=== PATIENT | male | born 1990 | race Caucasian/White ===

== ENCOUNTER 2021-02-24 23:00 | Inpatient (IN) | payer MEDICAID ==
[~2021-02-24] VITALS: Ht 185.4 cm; Wt 113.4 kg
[~2021-02-24 23:00] MED LIST: BACIO TP; BUPR100SR PO; CEPH500C3 PO; DIVA-80 PO; OLAN10TA74 PO
[2021-02-25] MEDS ORDERED: HALOPERIDOL 5 MG TABLET PO PRN (01:15)
[2021-02-25 01:58] VITALS: BP 138/90
[2021-02-25] MEDS: LORazepam 2 MG TABLET PO PRN (02:30)
[2021-02-25 02:56] VITALS: BP 138/90
[2021-02-25] MEDS ORDERED: PNEUMOCOCCAL VACCINE POLYVALENT 0.5 ML VIAL [PPSV23] IM. ONE (05:30)
[2021-02-25] MEDS ORDERED: MAG HYDROX/AL HYDROX/SIMETH ES 30 ML SUSPENSION UDCUP PO PRN (07:45)
[2021-02-25] MEDS ORDERED: IBUPROFEN 400 MG TABLET PO PRN (07:45)
[2021-02-25] MEDS ORDERED: GuaiFENesin/D-METHORPHAN [SUGAR-FREE] 200-20MG/10 ML SYRUP UDCUP PO PRN (07:45)
[2021-02-25] MEDS ORDERED: CloNIDine HCL 0.1 MG TABLET PO PRN (07:45)
[2021-02-25] MEDS ORDERED: NICOTINE 14 MG/24 HOUR PATCH TD PRN (07:45)
[2021-02-25] MEDS ORDERED: PETROLATUM,WHITE 28 GM JELLY TP PRN (07:45)
[2021-02-25] MEDS ORDERED: MAGNESIUM HYDROXIDE SUSPENSION 30 ML UDCUP PO PRN (07:45)
[2021-02-25] MEDS ORDERED: ONDANSETRON HCL 4 MG TABLET PO PRN (07:45)
[2021-02-25] MEDS ORDERED: ACETAMINOPHEN 325 MG TABLET PO PRN (07:45)
[2021-02-25] MEDS ORDERED: DOCUSATE SODIUM 100 MG CAPSULE PO PRN (07:45)
[2021-02-25] MEDS ORDERED: LOPERAMIDE HCL 2 MG CAPSULE PO PRN (07:45)
[2021-02-25] MEDS ORDERED: ALBUTEROL SULFATE HFA 90 MCG/PUFF 8 GM INHALER IH PRN (07:45)
[2021-02-25] MEDS: TOPIRAMATE 25 MG TABLET PO SCH ×2 (09:29→16:41)
[2021-02-25] MEDS: AmLODIPine BESYLATE 10 MG TABLET PO SCH (09:29)
[2021-02-25] MEDS: BuPROPion HCL XL 150 MG ER TABLET PO SCH (13:01)
[2021-02-25 13:24] VITALS: BP 127/63
[2021-02-25 16:31] VITALS: BP 118/72
[2021-02-25] MEDS: GABAPENTIN 300 MG CAPSULE PO SCH (16:41)
[2021-02-25] MEDS: OLANZapine 10 MG TABLET PO SCH (20:36)
[2021-02-26 01:37] VITALS: BP 134/74
[2021-02-26] MEDS: GABAPENTIN 300 MG CAPSULE PO SCH ×2 (09:20→16:52)
[2021-02-26] MEDS: TOPIRAMATE 25 MG TABLET PO SCH ×2 (09:20→16:52)
[2021-02-26] MEDS: BuPROPion HCL XL 150 MG ER TABLET PO SCH (09:20)
[2021-02-26] MEDS: AmLODIPine BESYLATE 10 MG TABLET PO SCH (09:20)
[2021-02-26 10:28] VITALS: BP 125/79
[2021-02-26] MEDS: LORazepam 2 MG TABLET PO PRN ×2 (13:42→22:05)
[2021-02-26 16:31] VITALS: BP 121/66
[2021-02-26] MEDS: OLANZapine 10 MG TABLET PO SCH (20:39)
[2021-02-27 01:17] VITALS: BP 106/64
[2021-02-27 08:26] VITALS: BP 104/63
[2021-02-27] MEDS: AmLODIPine BESYLATE 10 MG TABLET PO SCH (09:00)
[2021-02-27] MEDS: GABAPENTIN 300 MG CAPSULE PO SCH ×2 (09:06→16:53)
[2021-02-27] MEDS: BuPROPion HCL XL 150 MG ER TABLET PO SCH (09:06)
[2021-02-27] MEDS: TOPIRAMATE 25 MG TABLET PO SCH ×2 (09:06→16:53)
[2021-02-27 16:34] VITALS: BP 118/73
[2021-02-27] MEDS: OLANZapine 10 MG TABLET PO SCH (20:32)
[2021-02-28 00:32] VITALS: BP 124/70
[2021-02-28] MEDS: AmLODIPine BESYLATE 10 MG TABLET PO SCH (08:37)
[2021-02-28] MEDS: GABAPENTIN 300 MG CAPSULE PO SCH ×2 (08:37→17:12)
[2021-02-28] MEDS: BuPROPion HCL XL 150 MG ER TABLET PO SCH (08:37)
[2021-02-28] MEDS: TOPIRAMATE 25 MG TABLET PO SCH ×2 (08:37→17:12)
[2021-02-28 09:06] VITALS: BP 130/79
[2021-02-28 16:18] VITALS: BP 135/81
[2021-02-28] MEDS: OLANZapine 10 MG TABLET PO SCH (20:13)
[2021-03-01 00:26] VITALS: BP 118/80
[2021-03-01 08:52] VITALS: BP 121/80
[2021-03-01] MEDS: AmLODIPine BESYLATE 10 MG TABLET PO SCH (09:03)
[2021-03-01] MEDS: BuPROPion HCL XL 150 MG ER TABLET PO SCH (09:03)
[2021-03-01] MEDS: TOPIRAMATE 25 MG TABLET PO SCH (09:03)
[2021-03-01] MEDS: GABAPENTIN 300 MG CAPSULE PO SCH (09:03)
[2021-03-01] MEDS ORDERED: BUPR-93 PO (13:44)
[2021-03-01] MEDS ORDERED: GABA-1181 PO (13:44)
[2021-03-01] MEDS ORDERED: TOPI25 PO (13:45)
[2021-03-01] MEDS ORDERED: AMLO-258 PO (13:45)
== END 2021-03-01 16:17 | disposition home or self-care (01) | DRG 750 ==
LOC: B2S 02-25 01:16
PROVIDERS: ADMIT Psychiatry & Neurology Psychiatry; ATTEND Psychiatry & Neurology Psychiatry
DX: F25.9 Schizoaffective disorder, unspecified (principal); R45.851 Suicidal ideations; E66.9 Obesity, unspecified; F32.9 Major depressive disorder, single episode, unspecified; F43.10 Post-traumatic stress disorder, unspecified; F41.9 Anxiety disorder, unspecified; I10 Essential (primary) hypertension; Z91.5 Personal history of self-harm; Z68.30 Body mass index [BMI] 30.0-30.9, adult; Z79.899 Other long term (current) drug therapy; Z88.8 Allergy status to other drugs, medicaments and biological substances; Z91.010 Allergy to peanuts; Z91.013 Allergy to seafood
CPT/HCPCS: 90732; G0009; Z7610

== ENCOUNTER 2021-03-28 14:09 | Inpatient (IN) | payer MEDICAID, OTHER ==
[~2021-03-28] VITALS: Ht 185.4 cm; Wt 108.4 kg
[~2021-03-28 14:09] MED LIST changes: +AMLO-258 PO; -BACIO TP; +BUPR-93 PO; -BUPR100SR PO; -CEPH500C3 PO; -DIVA-80 PO; +GABA-1181 PO; +TOPI25 PO
[2021-03-28 15:48] LABS: BASOPHILS % (AUTO) 0.6 % (0.0-2.0); EOSINOPHILS % (AUTO) 1.3 % (1.0-6.0); HEMATOCRIT 44.1 % (41-53); HEMOGLOBIN 15.1 g/dL (13.5-17.5); LYMPHOCYTES # (AUTO) 2.4 K/uL (1.0-4.8); LYMPHOCYTES % (AUTO) 27.9 % (22.0-44.0); MEAN CORPUSCULAR HEMOGLOBIN 30.3 pg (26.0-34.0); MEAN CORPUSCULAR HGB CONC 34.2 G/dL (31.0-37.0); MEAN CORPUSCULAR VOLUME 89 fL (80-100); MONOCYTES # (AUTO) 0.7 K/uL (0.1-1.0); MONOCYTES % (AUTO) 7.8 % (2.0-9.0); NEUTROPHILS # (AUTO) 5.4 K/uL (1.8-7.7); NEUTROPHILS % (AUTO) 62.4 % (40.0-70.0); PLATELET COUNT (AUTO) 211 K/uL (150-450); RED BLOOD CELL COUNT(AUTO) 4.97 MIL/uL (4.50-5.90); RED CELL DISTRIBUTION WIDTH 13.1 % (11.5-14.5)
[2021-03-28 15:51] LABS: AMPHET/METH SCREEN,URINE NEGATIVE (NEGATIVE); BARBITURATE SCREEN, URINE NEGATIVE (NEGATIVE); BENZODIAZEPINES SCREEN,URINE NEGATIVE (NEGATIVE); CANNABINOID SCREEN,URINE NEGATIVE (NEGATIVE); COCAINE SCREEN,URINE NEGATIVE (NEGATIVE); METHADONE SCREEN, URINE NEGATIVE (NEGATIVE); OPIATE SCREEN,URINE NEGATIVE (NEGATIVE)
[2021-03-28 15:52] LABS: PHENCYCLIDINE SCREEN,URINE NEGATIVE (NEGATIVE)
[2021-03-28 15:58] LABS: ANION GAP 10 mmol/L (8-16); CALCIUM, TOTAL 9.4 mg/dL (8.8-10.5); CARBON DIOXIDE 26 mmol/L (22-29); CHLORIDE 103 mmol/L (98-107); CREATININE 1.07 mg/dL (0.60-1.30); GLOMERULAR FILTR. RATE CALC > 60 mL/min (>60); GLUCOSE,RANDOM 89 mg/dL (70-110); POTASSIUM 3.5 mmol/L (3.5-5.1); SODIUM SERUM 139 mmol/L (136-145); UREA NITROGEN, BLOOD 11 mg/dL (7-18)
[2021-03-28] MEDS ORDERED: HALOPERIDOL 5 MG TABLET PO PRN (16:00)
[2021-03-28] MEDS ORDERED: LORazepam 2 MG TABLET PO PRN (16:00)
[2021-03-28] MEDS ORDERED: ZOLPIDEM TARTRATE 10 MG TABLET PO PRN (16:00)
[2021-03-28 16:04] LABS: ALANINE AMINOTRANSFERASE 45 U/L (12-78); ALBUMIN 4.7 g/dL (3.4-5.0); ALKALINE PHOSPHATASE 99 U/L (46-116); ASPARTATE AMINOTRANSFERASE 26 U/L (15-37); BILIRUBIN,TOTAL 0.4 mg/dL (0.1-1.0); TOTAL PROTEIN, SERUM 8.5 g/dL (6.4-8.2)
[2021-03-28 16:05] LABS: LITHIUM 0.59 mmol/L (0.60-1.20)
[2021-03-28 16:13] LABS: COVID AG,FIA SOURCE NASOPHARYNGEAL
[2021-03-28 17:33] VITALS: BP 158/90
[2021-03-28] MEDS ORDERED: AmLODIPine BESYLATE 10 MG TABLET PO ONE (18:45)
[2021-03-29 06:54] LABS: CHOL/HDL RATIO 3.8 (4.2-7.3); FREE T4 (FREE THYROXINE) 0.82 ng/dL (0.76-1.46); THYROID STIMULATING HORMONE 1.93 uIU/mL (0.36-3.74)
[2021-03-29] MEDS: AmLODIPine BESYLATE 10 MG TABLET PO SCH (08:32)
[2021-03-29 08:45] VITALS: BP 122/67
[2021-03-29] MEDS ORDERED: ACETAMINOPHEN 325 MG TABLET PO PRN (09:30)
[2021-03-29] MEDS ORDERED: ALBUTEROL SULFATE HFA 90 MCG/PUFF 8 GM INHALER IH PRN (09:30)
[2021-03-29] MEDS ORDERED: CloNIDine HCL 0.1 MG TABLET PO PRN (09:30)
[2021-03-29] MEDS ORDERED: GuaiFENesin/D-METHORPHAN [SUGAR-FREE] 200-20MG/10 ML SYRUP UDCUP PO PRN (09:30)
[2021-03-29] MEDS ORDERED: PETROLATUM,WHITE 28 GM JELLY TP PRN (09:30)
[2021-03-29] MEDS ORDERED: MAGNESIUM HYDROXIDE SUSPENSION 30 ML UDCUP PO PRN (09:30)
[2021-03-29] MEDS ORDERED: IBUPROFEN 400 MG TABLET PO PRN (09:30)
[2021-03-29] MEDS ORDERED: ONDANSETRON HCL 4 MG TABLET PO PRN (09:30)
[2021-03-29] MEDS ORDERED: NICOTINE 14 MG/24 HOUR PATCH TD PRN (09:30)
[2021-03-29] MEDS ORDERED: DOCUSATE SODIUM 100 MG CAPSULE PO PRN (09:30)
[2021-03-29] MEDS ORDERED: LOPERAMIDE HCL 2 MG CAPSULE PO PRN (09:30)
[2021-03-29] MEDS ORDERED: MAG HYDROX/AL HYDROX/SIMETH ES 30 ML SUSPENSION UDCUP PO PRN (09:30)
[2021-03-29] MEDS: BuPROPion HCL XL 150 MG ER TABLET PO SCH (10:07)
[2021-03-29] MEDS: DIVALPROEX SODIUM 500 MG DR TABLET PO SCH ×2 (10:07→20:09)
[2021-03-29] MEDS: TOPIRAMATE 25 MG TABLET PO SCH ×2 (10:07→16:27)
[2021-03-29] MEDS: GABAPENTIN 300 MG CAPSULE PO SCH ×2 (10:07→16:27)
[2021-03-29 16:00] VITALS: BP 128/65
[2021-03-29] MEDS: OLANZapine 10 MG TABLET PO SCH (20:09)
[2021-03-30 08:44] VITALS: BP 154/89
[2021-03-30] MEDS ORDERED: AmLODIPine BESYLATE 10 MG TABLET PO SCH (09:00)
[2021-03-30] MEDS: BuPROPion HCL XL 150 MG ER TABLET PO SCH (09:10)
[2021-03-30] MEDS: AmLODIPine BESYLATE 10 MG TABLET PO SCH (09:11)
[2021-03-30] MEDS: TOPIRAMATE 25 MG TABLET PO SCH ×2 (09:11→16:41)
[2021-03-30] MEDS: GABAPENTIN 300 MG CAPSULE PO SCH ×2 (09:11→16:41)
[2021-03-30] MEDS: DIVALPROEX SODIUM 500 MG DR TABLET PO SCH ×2 (09:11→20:17)
[2021-03-30 18:25] VITALS: BP 149/86
[2021-03-30] MEDS: OLANZapine 10 MG TABLET PO SCH (20:16)
[2021-03-31 08:00] VITALS: BP 134/73
[2021-03-31] MEDS: TOPIRAMATE 25 MG TABLET PO SCH ×2 (08:39→16:30)
[2021-03-31] MEDS: DIVALPROEX SODIUM 500 MG DR TABLET PO SCH ×2 (08:39→20:00)
[2021-03-31] MEDS: GABAPENTIN 300 MG CAPSULE PO SCH ×2 (08:39→16:30)
[2021-03-31] MEDS: BuPROPion HCL XL 150 MG ER TABLET PO SCH (08:39)
[2021-03-31] MEDS: AmLODIPine BESYLATE 10 MG TABLET PO SCH (08:39)
[2021-03-31 16:37] VITALS: BP 134/80
[2021-03-31] MEDS: OLANZapine 10 MG TABLET PO SCH (20:00)
[2021-04-01 08:00] VITALS: BP 138/76
[2021-04-01] MEDS: GABAPENTIN 300 MG CAPSULE PO SCH (08:38)
[2021-04-01] MEDS: DIVALPROEX SODIUM 500 MG DR TABLET PO SCH (08:38)
[2021-04-01] MEDS: AmLODIPine BESYLATE 10 MG TABLET PO SCH (08:38)
[2021-04-01] MEDS: TOPIRAMATE 25 MG TABLET PO SCH (08:38)
[2021-04-01] MEDS: BuPROPion HCL XL 150 MG ER TABLET PO SCH (08:38)
[2021-04-01] MEDS ORDERED: DIVA125C20 PO (12:00)
== END 2021-04-01 14:00 | disposition home or self-care (01) | DRG 750 ==
LOC: EMS 14:09 → 3EI 15:48
PROVIDERS: ADMIT Psychiatry & Neurology Child & Adolescent Psychiatry; ATTEND Psychiatry & Neurology Child & Adolescent Psychiatry
DX: F25.1 Schizoaffective disorder, depressive type (principal); R45.851 Suicidal ideations; I10 Essential (primary) hypertension; E66.9 Obesity, unspecified; Z68.31 Body mass index [BMI] 31.0-31.9, adult; F41.9 Anxiety disorder, unspecified; Z20.822 Contact with and (suspected) exposure to COVID-19; R10.13 Epigastric pain
CPT/HCPCS: 80053; 80061; 80178; 84439; 84443; 85025; 87081; 99285; G0480

== ENCOUNTER 2023-01-01 15:19 | Emergency (ER) | payer MEDICAID, OTHER ==
[~2023-01-01] VITALS: Ht 185.4 cm; Wt 100.0 kg
[~2023-01-01 15:19] MED LIST changes: +BUPR-50 PO; -BUPR-93 PO; +DIVA125C20 PO
[2023-01-01 15:24] VITALS: BP 142/94
[2023-01-01] MEDS ORDERED: DiphenhydrAMINE HCL 50 MG/ML VIAL IVP ONE (15:45)
[2023-01-01] MEDS ORDERED: VALB40CA2 PO (15:53)
[2023-01-01] MEDS ORDERED: OLAN5TAB52 PO (15:56)
[2023-01-02] MEDS ORDERED: DIVA500T53 PO (18:29)
== END 2023-01-01 16:43 | disposition home or self-care (01) ==
LOC: EMS 15:19
DX: G24.01 Drug induced subacute dyskinesia (principal); F32.A Depression, unspecified; Z88.6 Allergy status to analgesic agent; Z91.010 Allergy to peanuts
CPT/HCPCS: 99283; 96374; J1200

== ENCOUNTER 2023-01-02 17:54 | Emergency (ER) | payer OTHER ==
[~2023-01-02] VITALS: Ht 185.4 cm; Wt 100.0 kg
[~2023-01-02 17:54] MED LIST changes: -AMLO-258 PO; -BUPR-50 PO; -GABA-1181 PO; -OLAN10TA74 PO; +OLAN5TAB52 PO; -TOPI25 PO; +VALB40CA2 PO
[2023-01-02] MEDS ORDERED: DIVA500T53 PO (18:29)
[2023-01-02] MEDS ORDERED: SODIUM CHLORIDE 0.9% 1,000 ML IV ONE (19:45)
[2023-01-02] MEDS ORDERED: DiphenhydrAMINE HCL 50 MG/ML VIAL IVP ONE (19:45)
[2023-01-02 19:59] LABS: BASOPHILS % (AUTO) 0.5 % (0.0-2.0); EOSINOPHILS % (AUTO) 1.1 % (1.0-6.0); LYMPHOCYTES % (AUTO) 19.7 % (22.0-44.0); MEAN CORPUSCULAR HEMOGLOBIN 31.8 pg (26.0-34.0); MEAN CORPUSCULAR HGB CONC 34.9 G/dL (31.0-37.0); MEAN CORPUSCULAR VOLUME 91 fL (80-100); MONOCYTES # (AUTO) 0.8 K/uL (0.1-1.0); MONOCYTES % (AUTO) 8.2 % (2.0-9.0); NEUTROPHILS # (AUTO) 7.3 K/uL (1.8-7.7); NEUTROPHILS % (AUTO) 70.5 % (40.0-70.0); PLATELET COUNT (AUTO) 166 K/uL (150-450); RED CELL DISTRIBUTION WIDTH 12.7 % (11.5-14.5)
[2023-01-02 20:07] LABS: ANION GAP 11 mmol/L (8-16); CALCIUM, TOTAL 9.5 mg/dL (8.8-10.5); CARBON DIOXIDE 30 mmol/L (22-29); CHLORIDE 104 mmol/L (98-107); CREATININE 0.92 mg/dL (0.60-1.30); GLOMERULAR FILTR. RATE CALC > 60 mL/min (>60); GLUCOSE,RANDOM 88 mg/dL (70-110); POTASSIUM 4.2 mmol/L (3.5-5.1); SODIUM SERUM 145 mmol/L (136-145); UREA NITROGEN, BLOOD 13 mg/dL (7-18)
[2023-01-02 20:13] LABS: ALANINE AMINOTRANSFERASE 17 U/L (12-78); ALBUMIN 4.6 g/dL (3.4-5.0); ALKALINE PHOSPHATASE 66 U/L (46-116); ASPARTATE AMINOTRANSFERASE 17 U/L (15-37); BILIRUBIN,TOTAL 0.3 mg/dL (0.1-1.0); TOTAL PROTEIN, SERUM 8.2 g/dL (6.4-8.2)
[2023-01-02 21:38] VITALS: BP 93/83
== END 2023-01-02 22:32 | disposition home or self-care (01) ==
LOC: EMS 17:55
DX: G24.01 Drug induced subacute dyskinesia (principal); F41.9 Anxiety disorder, unspecified; F32.A Depression, unspecified; Z88.6 Allergy status to analgesic agent; Z91.010 Allergy to peanuts; Z91.013 Allergy to seafood
CPT/HCPCS: 99283; 96374; 96361; 80053; 85025; 36415; J1200; J7030

== ENCOUNTER 2023-01-23 13:10 | Inpatient (IN) | payer MEDICAID, OTHER ==
[~2023-01-23] VITALS: Ht 185.4 cm; Wt 99.7 kg
[~2023-01-23 13:10] MED LIST changes: -DIVA125C20 PO; +DIVA500T53 PO
[2023-01-23] MEDS ORDERED: LISI-662 PO (13:20)
[2023-01-23 17:02] LABS: BASOPHILS % (AUTO) 0.5 % (0.0-2.0); EOSINOPHILS % (AUTO) 0.7 % (1.0-6.0); HEMATOCRIT 42.1 % (41-53); HEMOGLOBIN 14.4 g/dL (13.5-17.5); LYMPHOCYTES # (AUTO) 2.1 K/uL (1.0-4.8); LYMPHOCYTES % (AUTO) 27.3 % (22.0-44.0); MEAN CORPUSCULAR HGB CONC 34.1 G/dL (31.0-37.0); MEAN CORPUSCULAR VOLUME 91 fL (80-100); MONOCYTES # (AUTO) 0.5 K/uL (0.1-1.0); MONOCYTES % (AUTO) 6.6 % (2.0-9.0); NEUTROPHILS % (AUTO) 64.9 % (40.0-70.0); PLATELET COUNT (AUTO) 177 K/uL (150-450); RED BLOOD CELL COUNT(AUTO) 4.63 MIL/uL (4.50-5.90); RED CELL DISTRIBUTION WIDTH 12.5 % (11.5-14.5)
[2023-01-23 17:09] LABS: ANION GAP 7 mmol/L (8-16); CARBON DIOXIDE 29 mmol/L (22-29); CHLORIDE 101 mmol/L (98-107); CREATININE 0.89 mg/dL (0.60-1.30); GLOMERULAR FILTR. RATE CALC > 60 mL/min (>60); GLUCOSE,RANDOM 89 mg/dL (70-110); POTASSIUM 4.2 mmol/L (3.5-5.1); SODIUM SERUM 137 mmol/L (136-145)
[2023-01-23 17:15] LABS: ALANINE AMINOTRANSFERASE 25 U/L (12-78); ALBUMIN 4.9 g/dL (3.4-5.0); ALKALINE PHOSPHATASE 68 U/L (46-116); ASPARTATE AMINOTRANSFERASE 20 U/L (15-37); BILIRUBIN,TOTAL 0.4 mg/dL (0.1-1.0); TOTAL PROTEIN, SERUM 8.5 g/dL (6.4-8.2); VALPROIC ACID 73 mcg/mL (50-100)
[2023-01-23] MEDS ORDERED: OLANZapine 5 MG RAPDIS TABLET PO PRN (17:15)
[2023-01-23] MEDS ORDERED: LORazepam 2 MG TABLET PO PRN (17:15)
[2023-01-23] MEDS ORDERED: ZOLPIDEM TARTRATE 10 MG TABLET PO PRN (17:15)
[2023-01-23 17:20] LABS: AMPHET/METH SCREEN,URINE NEGATIVE (NEGATIVE); BARBITURATE SCREEN, URINE NEGATIVE (NEGATIVE); BENZODIAZEPINES SCREEN,URINE NEGATIVE (NEGATIVE); CANNABINOID SCREEN,URINE NEGATIVE (NEGATIVE); COCAINE SCREEN,URINE NEGATIVE (NEGATIVE); METHADONE SCREEN, URINE NEGATIVE (NEGATIVE); OPIATE SCREEN,URINE NEGATIVE (NEGATIVE); PHENCYCLIDINE SCREEN,URINE NEGATIVE (NEGATIVE)
[2023-01-23 20:08] LABS: COVID AG,FIA SOURCE NASOPHARYNGEAL
[2023-01-23 22:44] VITALS: BP 136/90
[2023-01-23] MEDS ORDERED: PROMETHAZINE HCL 25 MG TABLET PO PRN (22:45)
[2023-01-23] MEDS ORDERED: TUBERCULIN, PURIFIED PROTEIN DERIVATIVE 5 TU/0.1 ML SYRINGE ID ONE (22:45)
[2023-01-23] MEDS ORDERED: ACETAMINOPHEN 325 MG TABLET PO PRN (22:45)
[2023-01-23] MEDS ORDERED: MAG HYDROX/AL HYDROX/SIMETH ES 30 ML SUSPENSION UDCUP PO PRN (22:45)
[2023-01-23] MEDS ORDERED: GuaiFENesin/D-METHORPHAN [SUGAR-FREE] 200-20MG/10 ML SYRUP UDCUP PO PRN (22:45)
[2023-01-23] MEDS ORDERED: HydrOXYzine PAMOATE 50 MG CAPSULE PO PRN (22:45)
[2023-01-23] MEDS ORDERED: LOPERAMIDE HCL 2 MG CAPSULE PO PRN ×2 (22:45)
[2023-01-23] MEDS ORDERED: MAGNESIUM HYDROXIDE SUSPENSION 30 ML UDCUP PO PRN (22:45)
[2023-01-23 23:13] VITALS: BP 136/90
[2023-01-23 23:15] VITALS: BP 136/90
[2023-01-24 06:25] LABS: HEMOGLOBIN A1C 4.9 % (3.8-5.6)
[2023-01-24 06:34] LABS: CHOL/HDL RATIO 3.4 (4.2-7.3); FREE T4 (FREE THYROXINE) 0.95 ng/dL (0.76-1.46); THYROID STIMULATING HORMONE 1.83 uIU/mL (0.36-3.74)
[2023-01-24] MEDS ORDERED: LURASIDONE HCL 40 MG TABLET PO SCH (07:30)
[2023-01-24] MEDS ORDERED: BuPROPion HCL XL 150 MG ER TABLET PO SCH (09:00)
[2023-01-24 09:18] VITALS: BP 137/82
[2023-01-24] MEDS: LISINOPRIL 20 MG TABLET PO SCH (09:44)
[2023-01-24] MEDS: THIAMINE 100 MG TABLET PO SCH ×2 (09:44→17:14)
[2023-01-24] MEDS: MULTIVITAMINS WITH MINERALS, THERAPEUTIC TABLET PO SCH (09:44)
[2023-01-24] MEDS: NALTREXONE HCL 50 MG TABLET PO SCH (09:44)
[2023-01-24] MEDS: FOLIC ACID 1 MG TABLET PO SCH (09:45)
[2023-01-24 20:43] VITALS: BP 118/77
[2023-01-24] MEDS: DIVALPROEX SODIUM 500 MG ER TABLET PO SCH (20:44)
[2023-01-24] MEDS: MELATONIN 5 MG TABLET PO SCH (20:44)
[2023-01-25] MEDS: LISINOPRIL 20 MG TABLET PO SCH (08:21)
[2023-01-25] MEDS: MULTIVITAMINS WITH MINERALS, THERAPEUTIC TABLET PO SCH (08:21)
[2023-01-25] MEDS: THIAMINE 100 MG TABLET PO SCH ×2 (08:21→16:35)
[2023-01-25] MEDS: NALTREXONE HCL 50 MG TABLET PO SCH (08:21)
[2023-01-25] MEDS: FOLIC ACID 1 MG TABLET PO SCH (08:21)
[2023-01-25 09:00] VITALS: BP 125/76
[2023-01-25 16:14] VITALS: BP 145/104
[2023-01-25] MEDS: MELATONIN 5 MG TABLET PO SCH (21:22)
[2023-01-25] MEDS: DIVALPROEX SODIUM 500 MG ER TABLET PO SCH (21:23)
[2023-01-25] MEDS: OLANZapine 5 MG RAPDIS TABLET PO SCH (21:23)
[2023-01-25] MEDS ORDERED: NALT50TA PO (21:37)
[2023-01-25] MEDS ORDERED: MELA5TAB40 PO (21:37)
[2023-01-25] MEDS ORDERED: DIVA500T69 PO (21:37)
[2023-01-25] MEDS ORDERED: OLAN5TAB94 PO (21:37)
[2023-01-25 22:14] VITALS: BP 138/99
[2023-01-26] MEDS: LISINOPRIL 20 MG TABLET PO SCH (08:37)
[2023-01-26] MEDS: THIAMINE 100 MG TABLET PO SCH ×2 (08:37→16:18)
[2023-01-26] MEDS: FOLIC ACID 1 MG TABLET PO SCH (08:37)
[2023-01-26] MEDS: MULTIVITAMINS WITH MINERALS, THERAPEUTIC TABLET PO SCH ×2 (08:37→09:00)
[2023-01-26] MEDS: NALTREXONE HCL 50 MG TABLET PO SCH (08:37)
[2023-01-26 08:44] VITALS: BP 141/95
[2023-01-26 16:51] VITALS: BP 108/70
[2023-01-26] MEDS: MELATONIN 5 MG TABLET PO SCH (21:40)
[2023-01-26] MEDS: DIVALPROEX SODIUM 500 MG ER TABLET PO SCH (21:40)
[2023-01-26] MEDS: OLANZapine 5 MG RAPDIS TABLET PO SCH (21:40)
[2023-01-26 21:47] VITALS: BP 134/89
[2023-01-27] MEDS: THIAMINE 100 MG TABLET PO SCH (08:27)
[2023-01-27] MEDS: MULTIVITAMINS WITH MINERALS, THERAPEUTIC TABLET PO SCH (08:27)
[2023-01-27] MEDS: LISINOPRIL 20 MG TABLET PO SCH (08:27)
[2023-01-27] MEDS: NALTREXONE HCL 50 MG TABLET PO SCH (08:28)
[2023-01-27] MEDS: FOLIC ACID 1 MG TABLET PO SCH (08:28)
[2023-01-27 09:19] VITALS: BP 135/94
== END 2023-01-27 14:51 | disposition home or self-care (01) | DRG 751 ==
LOC: EMS 13:10 → 3EI 21:25
PROVIDERS: ADMIT Psychiatry & Neurology Psychiatry; ATTEND Psychiatry & Neurology Psychiatry
DX: F33.2 Major depressive disorder, recurrent severe without psychotic features (principal); R45.851 Suicidal ideations; J44.9 Chronic obstructive pulmonary disease, unspecified; F17.210 Nicotine dependence, cigarettes, uncomplicated; F41.9 Anxiety disorder, unspecified; I10 Essential (primary) hypertension; Z20.822 Contact with and (suspected) exposure to COVID-19; F43.10 Post-traumatic stress disorder, unspecified; Z79.899 Other long term (current) drug therapy; Z88.5 Allergy status to narcotic agent; Z91.010 Allergy to peanuts; Z91.013 Allergy to seafood
CPT/HCPCS: 80053; 80061; 80164; 80307; 83036; 84439; 84443; 85025; 86592; 99285; G0480; Q9967

== ENCOUNTER 2023-03-26 18:14 | Emergency (ER) | payer MEDICAID, OTHER ==
[~2023-03-26] VITALS: Ht 185.4 cm; Wt 77.3 kg
[~2023-03-26 18:14] MED LIST changes: -DIVA500T53 PO; +DIVA500T69 PO; +MELA5TAB40 PO; +NALT50TA PO; -OLAN5TAB52 PO; +OLAN5TAB94 PO; -VALB40CA2 PO
[2023-03-26 18:41] VITALS: BP 130/64; PULSE 84; RESP 16; TEMP 97.9
[2023-03-26] MEDS ORDERED: DIPH25CA85 PO (18:55)
[2023-03-26] MEDS ORDERED: IBUP-1492 PO (18:55)
[2023-03-26] MEDS ORDERED: IBUPROFEN 600 MG TABLET PO ONE (19:00)
[2023-03-26] MEDS ORDERED: DiphenhydrAMINE HCL 50 MG CAPSULE PO ONE (19:00)
== END 2023-03-26 19:55 | disposition home or self-care (01) ==
LOC: EMS 18:14
DX: B09 Unspecified viral infection characterized by skin and mucous membrane lesions (principal); L29.9 Pruritus, unspecified; F41.9 Anxiety disorder, unspecified; F32.A Depression, unspecified; I10 Essential (primary) hypertension; Z88.5 Allergy status to narcotic agent; Z91.010 Allergy to peanuts; Z91.013 Allergy to seafood
CPT/HCPCS: 99283

== ENCOUNTER 2023-04-01 14:49 | Emergency (ER) | payer OTHER ==
[~2023-04-01] VITALS: Ht 185.4 cm; Wt 94.0 kg
[~2023-04-01 14:49] MED LIST changes: +DIPH25CA85 PO; +IBUP-1492 PO
[2023-04-01 14:56] VITALS: BP 140/86; PULSE 98; RESP 16; TEMP 98.7
[2023-04-01] MEDS ORDERED: LORA-1000 PO (15:28)
[2023-04-01] MEDS ORDERED: DIPH50CA37 PO (15:28)
[2023-04-01] MEDS ORDERED: PERM60CR19 TP (15:28)
[2023-04-01] MEDS ORDERED: DiphenhydrAMINE HCL 50 MG/ML VIAL IM ONE (15:30)
== END 2023-04-01 15:42 | disposition home or self-care (01) ==
LOC: EMS 14:51
DX: B86 Scabies (principal); F41.9 Anxiety disorder, unspecified; F25.9 Schizoaffective disorder, unspecified; F31.9 Bipolar disorder, unspecified; I10 Essential (primary) hypertension; Z88.5 Allergy status to narcotic agent; Z91.013 Allergy to seafood; Z91.010 Allergy to peanuts
CPT/HCPCS: 99283; 96372; J1200

== ENCOUNTER 2023-04-14 18:55 | Emergency (ER) | payer OTHER ==
[~2023-04-14] VITALS: Ht 185.4 cm; Wt 102.3 kg
[~2023-04-14 18:55] MED LIST changes: +DIPH50CA37 PO; +LORA-1000 PO; +PERM60CR19 TP
[2023-04-14 18:58] VITALS: BP 149/97; PULSE 89; RESP 16; TEMP 98.3
[2023-04-14] MEDS ORDERED: IMIQ1CRE TP (19:51)
== END 2023-04-14 19:57 | disposition home or self-care (01) ==
LOC: EMS 18:56
DX: A63.0 Anogenital (venereal) warts (principal); F41.9 Anxiety disorder, unspecified; F31.9 Bipolar disorder, unspecified; I10 Essential (primary) hypertension; Z88.5 Allergy status to narcotic agent; Z91.010 Allergy to peanuts; Z91.013 Allergy to seafood
CPT/HCPCS: 99283

== ENCOUNTER 2023-04-23 16:42 | Emergency (ER) | payer OTHER ==
[~2023-04-23] VITALS: Ht 185.4 cm; Wt 101.0 kg
[~2023-04-23 16:42] MED LIST changes: +IMIQ1CRE TP
[2023-04-23 16:44] VITALS: BP 144/90; PULSE 106; RESP 16; TEMP 98.1
[2023-04-23] MEDS ORDERED: LORazepam 1 MG TABLET PO ONE (17:45)
== END 2023-04-23 18:01 | disposition home or self-care (01) ==
LOC: EMS 16:44
DX: R06.00 Dyspnea, unspecified (principal); F41.9 Anxiety disorder, unspecified; F25.9 Schizoaffective disorder, unspecified; F31.9 Bipolar disorder, unspecified; I10 Essential (primary) hypertension; Z88.5 Allergy status to narcotic agent; Z91.013 Allergy to seafood
CPT/HCPCS: 99283

== ENCOUNTER 2023-05-18 01:28 | Emergency (ER) | payer OTHER ==
[~2023-05-18] VITALS: Ht 188 cm; Wt 101.4 kg
[2023-05-18 01:39] VITALS: BP 145/89; PULSE 65; RESP 15; TEMP 98.3
[2023-05-18] MEDS ORDERED: HALOPERIDOL 5 MG TABLET PO ONE (02:15)
== END 2023-05-18 03:40 | disposition home or self-care (01) ==
LOC: EMS 01:38
DX: F31.9 Bipolar disorder, unspecified (principal); F41.9 Anxiety disorder, unspecified; I10 Essential (primary) hypertension; Z88.6 Allergy status to analgesic agent; Z91.010 Allergy to peanuts; Z91.013 Allergy to seafood
CPT/HCPCS: 80164; 99283; 99284

== ENCOUNTER 2023-05-26 12:44 | Emergency (ER) | payer OTHER ==
[~2023-05-26] VITALS: Ht 185.4 cm; Wt 104.5 kg
[2023-05-26 15:19] LABS: COVID AG,FIA SOURCE NASAL SWAB
[2023-05-26 15:41] LABS: INFLUENZA TYPE A NEGATIVE FOR TYPE A (NEGATIVE); INFLUENZA TYPE B NEGATIVE FOR TYPE B (NEGATIVE)
[2023-05-26 15:43] LABS: RESPIRATORY SYNCYTIAL VIRS,FIA NEGATIVE (Negative)
[2023-05-26] MEDS ORDERED: ACETAMINOPHEN 500 MG TABLET PO ONE (15:45)
[2023-05-26] MEDS ORDERED: IBUPROFEN 600 MG TABLET PO ONE (15:45)
[2023-05-26] MEDS ORDERED: GuaiFENesin/D-METHORPHAN [SUGAR-FREE] 200-20MG/10 ML SYRUP UDCUP PO ONE (15:45)
[2023-05-26] MEDS ORDERED: BENZONATATE 100 MG CAPSULE PO ONE (15:45)
[2023-05-26 15:53] LABS: SARS-COV2 (COVID) ANTIGEN,FIA Positive (Negative)
[2023-05-26] MEDS ORDERED: GUAIFDM PO (16:05)
[2023-05-26] MEDS ORDERED: IBUP-1554 PO (16:05)
[2023-05-26] MEDS ORDERED: BENZ-227 PO (16:05)
[2023-05-26] MEDS ORDERED: ACET-66 PO (16:05)
[2023-05-26 16:07] VITALS: BP 138/82; PULSE 96; RESP 16; TEMP 99.1
== END 2023-05-26 16:30 | disposition home or self-care (01) ==
LOC: EMS 12:45
DX: U07.1 COVID-19 (principal); J06.9 Acute upper respiratory infection, unspecified; F41.9 Anxiety disorder, unspecified; F31.9 Bipolar disorder, unspecified; I10 Essential (primary) hypertension; Z88.5 Allergy status to narcotic agent; Z91.010 Allergy to peanuts; Z86.59 Personal history of other mental and behavioral disorders; Z91.013 Allergy to seafood
CPT/HCPCS: 87420; 87804; 99284; Z7502; Z7610

== ENCOUNTER 2023-09-01 22:05 | Emergency (ER) | payer OTHER ==
[~2023-09-01] VITALS: Ht 185.4 cm; Wt 99.5 kg
[~2023-09-01 22:05] MED LIST changes: +ACET-66 PO; +BENZ-227 PO; -DIPH25CA85 PO; -DIPH50CA37 PO; +GUAIFDM PO; -IBUP-1492 PO; +IBUP-1554 PO; -PERM60CR19 TP; +PROP10TA73 PO
[2023-09-01 23:30] VITALS: BP 154/91; PULSE 94; RESP 16; TEMP 97.3
[2023-09-01] MEDS ORDERED: DiphenhydrAMINE HCL 25 MG CAPSULE PO ONE (23:30)
[2023-09-01] MEDS ORDERED: PredniSONE 20 MG TABLET PO ONE (23:30)
[2023-09-01] MEDS ORDERED: FAMOTIDINE 20 MG TABLET PO ONE (23:30)
[2023-09-01] MEDS ORDERED: PRED-554 PO (23:40)
[2023-09-01] MEDS ORDERED: DIPH25TA51 PO (23:44)
== END 2023-09-02 00:30 | disposition home or self-care (01) ==
LOC: EMS 22:06
DX: T78.40XA Allergy, unspecified, initial encounter (principal); F41.9 Anxiety disorder, unspecified; F31.9 Bipolar disorder, unspecified; I10 Essential (primary) hypertension; Z88.6 Allergy status to analgesic agent; Z91.010 Allergy to peanuts; Z91.013 Allergy to seafood; X58.XXXA Exposure to other specified factors, initial encounter
CPT/HCPCS: 99284; J7512

== ENCOUNTER 2024-03-16 18:13 | Emergency (ER) | payer OTHER ==
[~2024-03-16] VITALS: Ht 185.4 cm; Wt 106.8 kg
[~2024-03-16 18:13] MED LIST changes: +DIPH25TA51 PO; -NALT50TA PO; +NALT50TA6 PO; +PRED-554 PO
[2024-03-16 18:16] VITALS: TEMP 97.4
[2024-03-16] MEDS ORDERED: OLAN10TA74 PO (19:43)
[2024-03-16] MEDS ORDERED: IBUP-2077 PO (19:43)
[2024-03-16] MEDS ORDERED: LAMO25TA36 PO (19:43)
[2024-03-16] MEDS: AMOXICILLIN TRIHYDRATE 250 MG CAPSULE PO ONE (19:47)
[2024-03-16] MEDS: TraMADol HCL 50 MG TABLET PO ONE (19:47)
[2024-03-16] MEDS: KETOROLAC TROMETHAMINE 30 MG/ML VIAL IM ONE (19:47)
[2024-03-16] MEDS ORDERED: AMOX250C4 PO (19:51)
[2024-03-16] MEDS ORDERED: TRAM50TA5 PO (19:52)
[2024-03-16 19:55] VITALS: BP 142/98; PULSE 92; RESP 18
== END 2024-03-16 20:01 | disposition home or self-care (01) ==
LOC: EMS 18:13
DX: K02.9 Dental caries, unspecified (principal); I10 Essential (primary) hypertension; Z88.5 Allergy status to narcotic agent; Z91.010 Allergy to peanuts; Z91.013 Allergy to seafood
CPT/HCPCS: 99283; 96372; J1885